=== PATIENT | female | born 1970 | race African-American/Black ===

== ENCOUNTER 2016-10-21 15:56 | Inpatient (IN) | payer OTHER ==
[~2016-10-21] VITALS: Ht 154.9 cm; Wt 71.7 kg
--- NOTE | ~2016-10-21 | S ---
[facility] [place] [address] SURGICAL PATH RPT PROCEDURE Name: AFSANEH BRYANT Room #: 544-P [facility] IN M.R.#: [id number] Admission: 10/21/16 Date of : 68 Discharge: 10/23/16 Report #: [id number] Path Case #: [id number] PATHOLOGY REPORT COLLECTION DATE: 10/22/2016 RECEIVED DATE: 10/22/2016 SUBMITTING PHYS: Dr. Roque Martin OTHER PHYS: Dr. [place] Clements SPECIMEN(S) RECEIVED: A.Right lower inner breast B.Right axillary node * * * * * * * * * * * * FINAL DIAGNOSIS: A. Breast, right lower inner breast, needle core biopsy: - INVASIVE POORLY DIFFERENTIATED DUCTAL ADENOCARCINOMA, JAG GRADE 3 ASSOCIATED WITH ABUNDANT NECROSIS. B. Lymph node, right axillary node, needle core biopsy: - POORLY DIFFERENTIATED DUCTAL ADENOCARCINOMA, MORPHOLOGICALLY SIMILAR TO THE BREAST NEEDLE CORE TISSUE. - TUMOR ASSOCIATED WITH ABUNDANT NECROSIS. - No lymphoid tissue present for evaluation. COMMENT: Specimen type: Needle core biopsy Tumor site: Right breast mass and Right axillary node Tumor quantitation: 2 mm and 8 mm respectively Histologic type: Invasive ductal carcinoma Histologic grade: Jag grade 3 in the breast biopsy Tubules, nuclei and mitoses: 3, 3 and 3 respectively LVSI: Not identified Microcalcifications: Not identified Markers: ER, RI, Ki-67 and Her-2 Block: B1 Coreview: Dr. Finn Cerda. Findings are telephoned to Ms. Ursula Hightower in our Breast center at 2:[address] Clements at 2:40 pm on 10/24/16. (IUV; 10/24/16) PATHOLOGIST: Mariola Fajardo M.D. REPORT ELECTRONICALLY SIGNED BY: Mariola Fajardo M.D. DATE/TIME: 10/24/2016 15:47 [facility] [place] [address] SURGICAL PATH RPT PROCEDURE Name: AFSANEH BRYANT Room #: 544-P [facility] IN [facility].#: [id number] Admission: 10/21/16 Date of : 68 Discharge: 10/23/16 Report #: [id number] Path Case #: [id number] * * * * * * * * * * * * GROSS PATHOLOGY: A. Received in formalin labeled "Afsaneh Bryant, right breast mass," are multiple needle cores of yellow-arthur fibrofatty tissue measuring 1.3 x 0.7 x 0.3 cm in aggregate dimensions. The tissue is submitted in its entirety in cassette A1. The cold ischemic time is 5 minutes. The total formalin fixation time is 31 hours and 45 minutes. B. Received in formalin labeled "Afsaneh Bryant, right axillary node," are 2 distinct needle cores of jordan soft tissue ranging from 1.1 to 1.5 cm in length, which are submitted entirely in cassette B1. The cold ischemic time is 5 minutes. The total formalin fixation time is 31 hours and 40 minutes. (KAH; 10/23/2016) CLINICAL HISTORY: Mass breast and axilla (right) INITIAL CPT CODE(S): A; 93171 B; 73437, 84104(4) Professional services performed by [facility] at [facility] [address] [place] [address] Technical services performed by [facility] at [address] [place] [address], [address], [place] [address]. [facility] [address] [place] [address] PHONE: [phone] DIRECTOR: Toño Sifuentes M.D. * * * END OF REPORT * * *
[~2016-10-21 15:56] MED LIST: CLARITIN10 MG PO; NOHOMEMEDICATIONS; PREDNISONE 20 M20 M1 PO
[2016-10-21 15:57] VITALS: BP 188/118
[2016-10-21 17:43] LABS: ABSOLUTE NEUTROPHILS 4.4 thou/uL (1.4-8.2); BASOPHILS 0.5 % (0.0-2.0); EOSINOPHILS 0.4 % (0.0-3.0); HEMATOCRIT 32.8 % (37.0-47.0); HEMOGLOBIN 10.6 gm/dL (12.0-15.0); LYMPHOCYTES 23.5 % (24.0-44.0); MCH 25.5 pg (26.0-34.0); MCHC 32.2 g/dL (28.0-37.0); MCV 79.1 fL (80.0-100.0); PLATELET COUNT 423 thou/uL (150-400); POLYS 64.6 % (36.0-66.0); RBC 4.15 mil/uL (4.20-5.00); RDW 17.2 % (10.5-14.5); WBC 6.8 thou/uL (4.0-11.0)
[2016-10-21 17:45] LABS: MANUAL DIFF NO
[2016-10-21 17:54] LABS: CALCIUM 9.3 mg/dL (8.5-10.1); CREATININE 0.7 mg/dL (0.6-1.0); POTASSIUM 3.5 mmol/L (3.5-5.1)
[2016-10-21 17:59] LABS: ALBUMIN 3.8 g/dL (3.4-5.0); TOTAL BILIRUBIN 0.1 mg/dL (<0.1-1.0); TOTAL PROTEIN 8.9 g/dL (6.4-8.2)
[2016-10-21 21:00] VITALS: BP 140/58
[2016-10-21 21:14] VITALS: BP 168/88
[2016-10-22 02:16] LABS: % SATURATION 6 % (20-39); IRON 23 ug/dL (50-170); TIBC 413 ug/dL (250-450); UIBC 390 ug/dL
[2016-10-22 04:00] VITALS: BP 123/70
[2016-10-22 07:26] VITALS: BP 119/80
[2016-10-22 15:11] VITALS: BP 137/88
[2016-10-22 19:09] VITALS: BP 123/84
[2016-10-23 04:45] VITALS: BP 124/88
[2016-10-23 07:25] VITALS: BP 121/94
[2016-10-23] MEDS ORDERED: IRON325 PO (12:42)
[2016-10-23 12:54] VITALS: BP 121/94
== END 2016-10-23 15:00 | disposition home or self-care (01) | DRG 580 ==
LOC: ER 15:56 → 5S 20:38 → EROBS 20:38 → 5S 21:15
PROVIDERS: Emergency Medicine; Nurse Practitioner Acute Care
PROC: 0HBT3ZX Excision of Right Breast, Percutaneous Approach, Diagnostic (ICD-10-PCS; principal; 2016-10-22)
PROC: 07B53ZX Excision of Right Axillary Lymphatic, Percutaneous Approach, Diagnostic (ICD-10-PCS; principal; 2016-10-22)
DX: C50.011 Malignant neoplasm of nipple and areola, right female breast (principal); C79.81 Secondary malignant neoplasm of breast; D50.9 Iron deficiency anemia, unspecified; I10 Essential (primary) hypertension; D64.9 Anemia, unspecified; R00.0 Tachycardia, unspecified; Z79.899 Other long term (current) drug therapy; Z80.3 Family history of malignant neoplasm of breast; Z80.42 Family history of malignant neoplasm of prostate
CPT/HCPCS: 10086